=== PATIENT | female | born 1980 | race Caucasian/White ===

== ENCOUNTER 2024-08-13 09:59 | Emergency (ER) | payer BC, SELFPAY ==
[2024-08-13 10:25] VITALS: BP 133/87
--- NOTE | 2024-08-13 10:34 | ED.GENMED ---
ED Provider Triage
<Lisa Ayoub PA-C - Last Filed: 08/13/24 10:37>
-
Patient seen by provider in Triage?: Seen in Triage
43 y/o F healthy
2 days heavy vag bleeding mor than usual period
used 4 pads yesterday
1 tampon today
minimal clots
felt lightheaded today with standing, went to and sent in
also mild sore throat afew days ago
A medical screening examination has been initiated by a qualified medical provider. Based on the assessment performed at this time, it has been determined that an emergent medical condition may exist and the patient has been informed that further
medical evaluation and possible additional diagnostic testing may be needed.
HPI: This is a medical evaluation conducted in person to initiate diagnostic evaluation and provide initial therapeutics. Please see further documentation by the treating clinician.
GENERAL: Alert , in no apparent distress
not pale
ENT: No visible abnormalities
LUNGS: No acute respiratory distress
NEUROLOGICAL: Alert and oriented
SKIN: Skin intact. No visible changes.
MUSCULOSKELETAL: Moving extremities normally
PSYCH: Normal and appropriate interaction.
cbc, cmp, preg, us pelvis, covid, flu, hcg
History of Present Illness
<Lisa Ayoub PA-C - Last Filed: 08/13/24 10:37>
General
Chief Complaint: Female Au Pair/Gu symptoms
Time Seen by Provider: 08/13/24 11:08
<Annmarie Lamas RETURN TO VENDOR - Last Filed: 08/13/24 15:57>
General
Source: patient
Exam Limitations: none
Nursing documentation reviewed up to this point in time: agreed with
History of Present Illness
History of Present Illness:
43-year-old female with no significant past medical history has had irregular periods for the past year, has felt dizzy and rundown since getting out of bed today. She started her menses 2 days ago that is heavier than its ever been with few clots.
She has mild cramping for which she took Midol that helped. She denies chest pain or trouble breathing.
States she had a mild sore throat 2 days ago, non now.
Past History
<Lisa Ayoub PA-C - Last Filed: 08/13/24 10:37>
Past History
ED Past Medical History: Psychiatric (Anxiety)
Social History
Tobacco: Non-smoker
Alcohol: None
<Annmarie Lamas, RETURN TO VENDOR - Last Filed: 08/13/24 15:57>
Past History
ED Past Medical History: None
ED Past Surgical History: None
Social History
Personal:
Living: with family
Employment: Employed
Review of Systems
<Annmarie Lamas, RETURN TO VENDOR - Last Filed: 08/13/24 15:57>
Review of Systems
Allergies reviewed?: Yes
All Other Systems: ROS reviewed and negative except as documented in HPI and ROS
Constitutional: Reports fatigue; Denies fever
Respiratory: Denies trouble breathing
Cardiac: Denies chest pain
ABD/GI: Reports abdominal pain (Mild cramps); Denies nausea, vomiting, diarrhea, constipated or anorexia
: Denies dysuria or difficulty voiding
Musculoskeletal: Reports no symptoms
Skin: Reports no symptoms
Neurological: Reports no symptoms
Phy Exam
<Annmarie Lamas, RETURN TO VENDOR - Last Filed: 08/13/24 15:57>
Physical Exam
Physical Exam:
GENERAL: No acute distress. A&Ox3.
CONSTITUTIONAL: Afebrile.
EYES: PERRL, conjunctivae normal
ENMT: moist mucus membranes, Pharynx nl
RESPIRATORY: Regular respirations, nonlabored, lungs clear.
CARDIOVASCULAR: Regular rate and rhythm, no murmurs, no rubs.
GI: Soft, nontender, normal BS
MUSCULOSKELETAL: Moves with ease. Well perfused.
SKIN: Warm, dry, pink
PSYCH: Normal mood and affect. Well kept, interactive and appropriate
NEUROLOGIC: Awake, alert and oriented. No focal neurological deficits
Course
<Lisa Ayoub PA-C - Last Filed: 08/13/24 10:37>
Orders/Labs/Results
Orders:
Orders
08/13/24 10:07
Test Result ONCE
08/13/24 10:35
US Pelvis W Transvag Combined Urgent
Comment:
Reason For Exam: heavy menstrual bleeding;
08/13/24 10:41
Type+Screen Urgent
Complete Blood Count/With Diff Urgent
Comprehensive Metabolic Panel Urgent
HCG, Serum Qualitative Screen Urgent
08/13/24 11:18
ABO2 Urgent
BBK Wristband Number:
Associate notified that ABO2 has been ordered: [id number]
Date: 08/13/24
Time: 10:58
[facility] Tender ID: [id number]
COVID-19 Antigen Urgent
Source: Nasal Swab
Influenza A+B Rapid Molecular Urgent
ELVIN Source: Nasal Swab
Specimen Description:
Abnormal Lab Results
08/13/24
10:41
RBC 4.07 L 10^6/uL
(4.20-5.40)
Hgb 11.7 L g/dL
(12.0-16.0)
Hct 36.4 L %
(37.0-47.0)
MCHC 32.1 L g/dL
(33.0-37.0)
BUN 21 H mg/dl
(7-17)
Creatinine 0.5 L mg/dL
(0.6-1.0)
Glucose 108 H mg/dl
(70-99)
08/13/24 10:41
08/13/24 10:41
Vital Signs
Initial and Last Documented VS:
Initial Vital Signs
Temp Pulse Resp BP Pulse Ox
98.0 F 76 16 133/87 98
08/13/24 10:25 08/13/24 10:25 08/13/24 10:25 08/13/24 10:25 08/13/24 10:25
Last Documented Vital Signs
Temp Pulse Resp BP Pulse Ox
98.0 F 76 16 122/68 100
08/13/24 10:25 08/13/24 10:25 08/13/24 10:25 08/13/24 11:29 08/13/24 11:31
<Annmarie Lamas, RETURN TO VENDOR - Last Filed: 08/13/24 15:57>
Orders/Labs/Results
Orders:
Orders
08/13/24 10:07
Test Result ONCE
08/13/24 10:35
US Pelvis W Transvag Combined Urgent
Comment:
Reason For Exam: heavy menstrual bleeding;
08/13/24 10:41
Type+Screen Urgent
Complete Blood Count/With Diff Urgent
Comprehensive Metabolic Panel Urgent
HCG, Serum Qualitative Screen Urgent
08/13/24 11:18
ABO2 Urgent
BBK Wristband Number:
Associate notified that ABO2 has been ordered: [id number]
Date: 08/13/24
Time: 10:58
[facility] [employer] Tender ID: [id number]
COVID-19 Antigen Urgent
Source: Nasal Swab
Influenza A+B Rapid Molecular Urgent
ELVIN Source: Nasal Swab
Specimen Description:
Abnormal Lab Results
08/13/24
10:41
RBC 4.07 L 10^6/uL
(4.20-5.40)
Hgb 11.7 L g/dL
(12.0-16.0)
Hct 36.4 L %
(37.0-47.0)
MCHC 32.1 L g/dL
(33.0-37.0)
BUN 21 H mg/dl
(7-17)
Creatinine 0.5 L mg/dL
(0.6-1.0)
Glucose 108 H mg/dl
(70-99)
08/13/24 10:41
08/13/24 10:41
Vital Signs
Initial and Last Documented VS:
Initial Vital Signs
Temp Pulse Resp BP Pulse Ox
98.0 F 76 16 133/87 98
08/13/24 10:25 08/13/24 10:25 08/13/24 10:25 08/13/24 10:25 08/13/24 10:25
Last Documented Vital Signs
Temp Pulse Resp BP Pulse Ox
98.0 F 76 16 122/68 100
08/13/24 10:25 08/13/24 10:25 08/13/24 10:25 08/13/24 11:29 08/13/24 11:31
<Annmarie Lamas, RETURN TO VENDOR - Last Filed: 08/13/24 15:57>
MDM/Problems Addressed
MDM/Problems Addressed:
43-year-old female with no significant past medical history has had irregular periods for the past year, has felt dizzy and rundown since getting out of bed today. She started her menses 2 days ago that is heavier than its ever been with few clots.
She has mild cramping for which she took Midol that helped. She denies chest pain or trouble breathing.
Wearing pad with a small amount of blood noted, no clots.
CBC, CMP with no clinically significant abnormality
HCG neg
Covid neg
US radiology report read: IMPRESSION:
Predominantly homogeneous appearance of the endometrium measuring 1.3-1.4 cm in this premenopausal patient.
No focal uterine mass.
Approximate 1.0 cm cyst in the left adnexa, separate from the left ovary. Most likely differential diagnostic possibilities would be a paraovarian cyst or mesenteric cyst.
Pt has used one pad since this a.m., no current significant vaginal bleeding.
Pt referred to [facility] for f/u
<Annmarie Lamas NP - Last Filed: 08/13/24 15:57>
*Critical Care Note
Total Time (30-74mins, 75-104mins- exclusive of procedures): Not Applicable
ED Attending Note
<Lisa Ayoub PA-C - Last Filed: 08/13/24 10:37>
-
Portions of this chart may have been created with voice recognition software.� Occasional wrong word or��sound alike� substitutions may have occurred due to the inherent limitations of voice recognition software.
Discharge Plan
Departure
Patient Disposition: Home (Routine Discharge)
Date of Disposition: 08/13/24
Time of Disposition: 13:28
Patient with high blood pressure during this ER visit?: No
Condition: Good
Discharge Problem:
Heavy menstrual period
Instructions: Heavy Periods (DC)
Prescriptions:
No Action
hydroxyzine HCl 25 mg Tablet
6.25 mg PO [id number]
pantoprazole [Protonix] 40 mg tablet,delayed release (DR/EC)
40 mg PO DAILY Qty: 30 0RF
Rx Instructions:
Please take 30 minutes prior to eating or drinking anything in the morning.
Referrals:
Shonna Jackson DO [Active] - Next open appointment
Uriah Donohue DO [Family Provider] -
Stand Alone Forms: Return to Work
Activity Restrictions/Additional Instructions:
As we discussed, your workup here today shows nothing worrisome.
Make appointment with the [facility] doctor
Return here at any time for worse bleeding, significant abdominal pain, feeling faint or feeling sicker in any way.
Interventions
Interventions:
*Risk Screen - Suicide Last Done: 08/13/24 10:25
*General Assessment Last Done: 08/13/24 11:19
*Neglect/Abuse Screening Last Done: 08/13/24 10:25
ED- Fall Risk Assessment Last Done: 08/13/24 11:19
*ED COVID-19 Vaccine History Last Done: 08/13/24 11:19
*Nursing Disposition Last Done: 08/13/24 13:44
ED-Female Genitourinary Assessment Last Done: 08/13/24 11:27
Discharge Date and Time
Discharge Date/Time: 08/13/24 13:54
Print Language: ANGUILLAN
[2024-08-13 10:58] LABS: % Basophils 0.4 % (0-2); % Eosinophils 0.8 % (0-6); % Immature Granulocytes 0.2 % (0-0.5); % Lymphocytes 26.1 % (20.5-51.1); % Monocytes 9.2 % (1.7-9.3); % Neutrophils 63.3 % (42.2-75.2); Absolute Lymphocytes 1.4 10^3/uL (1.2-3.4); Absolute Monocytes 0.5 10^3/uL (0.1-0.6); Absolute Neutrophils 3.4 10^3/uL (1.4-6.5); Hematocrit 36.4 % (37.0-47.0); Hemoglobin 11.7 g/dL (12.0-16.0); Mean Corp Hgb Conc. 32.1 g/dL (33.0-37.0); Mean Corpuscular Hgb 28.7 pg (27.0-31.0); Mean Corpuscular Volume 89.4 fL (81.0-99.0); Mean Platelet Volume 10.4 fL (7.4-10.4); Nucleated Red Blood Cells % 0 %; Platelet Count 259 10^3/uL (130-400); Red Blood Cell Count 4.07 10^6/uL (4.20-5.40); Red Cell Dist. Width 12.5 % (11.5-14.5); White Blood Cell Count 5.3 10^3/uL (4.8-10.8)
[2024-08-13 11:00] LABS: HCG, Serum Qualitative Screen Negative
[2024-08-13 11:08] LABS: ALT (SGPT) 24 U/L (0-35); AST (SGOT) 25 U/L (14-36); Albumin 4.4 g/dl (3.5-5.0); Alkaline Phosphatase 80 U/L (38-126); Blood Urea Nitrogen 21 mg/dl (7-17); Calcium 9.1 mg/dl (8.4-10.2); Carbon Dioxide 26 mmol/L (22-30); Chloride 106 mmol/L (98-107); Glucose 108 mg/dl (70-99); Potassium 4.6 mmol/L (3.5-5.1); Sodium 141 mmol/L (135-145); Total Bilirubin 0.2 mg/dl (0.2-1.3); Total Protein 7.2 g/dl (6.3-8.2); eGFR > 60.00
[2024-08-13 11:19] VITALS: BMI 38.9
[2024-08-13 11:29] VITALS: BP 122/68
[2024-08-13 11:50] LABS: COVID-19 Antigen Negative (Negative)
== END 2024-08-13 13:54 | disposition home or self-care (01) ==
LOC: EMR 09:59
PROVIDERS: Emergency Medicine; Physician Assistant; EMERGENCY PHYSICIAN Student in an Organized Health Care Education/Training Program; FAMILY PHYSICIAN Family Medicine
DX: N92.0 Excessive and frequent menstruation with regular cycle (principal); N92.6 Irregular menstruation, unspecified; F41.9 Anxiety disorder, unspecified; Z11.52 Encounter for screening for COVID-19
CPT/HCPCS: 99284; 76830; 76856; 80053; 84703; 85025; 86850; 86900; 86901; 87502; 87811